=== PATIENT | female | born 1995 | race Caucasian/White ===

== ENCOUNTER 2017-01-24 17:33 | Emergency (ER) | payer OTHER ==
[~2017-01-24] VITALS: Ht 167.6 cm; Wt 102.4 kg
[~2017-01-24 17:33] MED LIST: INSULIN
[2017-01-24 18:21] VITALS: BP 131/85
== END 2017-01-24 20:46 | disposition left against medical advice (07) ==
LOC: ER 17:34
DX: R51 Headache (principal); Z53.21 Procedure and treatment not carried out due to patient leaving prior to being seen by health care provider

== ENCOUNTER 2017-09-05 19:26 | Emergency (ER) | payer SELFPAY ==
[~2017-09-05] VITALS: Ht 160 cm; Wt 105.0 kg
[2017-09-05] MEDS ORDERED: SODIUM CHLORIDE 0.9% 1,000 ML IV ONE (20:49)
[2017-09-05] MEDS ORDERED: KETOROLAC 30MG/ML VIAL IV STA (20:49)
[2017-09-05 20:56] LABS: PROTHROMBIN TIME 10.5 sec (9.4-11.6)
[2017-09-05 20:57] LABS: BASOPHILS % 0.6 % (0.0-2.0); EOSINOPHILS % 0.3 % (0.0-5.0); HEMATOCRIT. 37.5 % (36.0-48.0); HEMOGLOBIN. 12.5 g/dL (12.0-16.0); LYMPHOCYTES % 29.1 % (20.0-50.0); MEAN CORPUSCULAR HEMOGLOBIN 27.2 pg (28.0-32.0); MEAN CORPUSCULAR VOLUME 81.4 fL (81.0-99.0); MEAN PLATELET VOLUME 10.2 fl (7.4-10.4); MONOCYTES % 5.6 % (2.0-8.0); NEUTROPHILS % 64.4 % (40.0-76.0); PLATELET 226 x1000/uL (130-400); RED CELL DISTRIBUTION WIDTH 13.2 % (11.6-14.6)
[2017-09-05 21:00] LABS: CARBON DIOXIDE 28 mEq/L (21-32); CHLORIDE 100 mEq/L (98-107)
[2017-09-05 21:11] VITALS: BP 119/70
[2017-09-05] MEDS ORDERED: IOHEXOL-300 100 ML BOTTLE ONE (22:12)
[2017-09-05] MEDS ORDERED: CEFTRIAXONE 1 G PREMIX 50 ML IV ONE (23:00)
== END 2017-09-05 23:55 | disposition home or self-care (01) ==
LOC: ER 19:26
DX: K11.20 Sialoadenitis, unspecified (principal); E11.65 Type 2 diabetes mellitus with hyperglycemia; E66.9 Obesity, unspecified; R79.1 Abnormal coagulation profile
CPT/HCPCS: 36415; 70491; 80048; 85025; 85610; 96374; 96375; 99285; J0696; J1885; J7030; Q9967; Z7610

== ENCOUNTER 2020-01-11 17:08 | Emergency (ER) | payer MEDICAID ==
[~2020-01-11] VITALS: Ht 167.6 cm; Wt 210.0 kg
[2020-01-11 17:46] VITALS: BP 127/62
[2020-01-11] MEDS ORDERED: IBUPROFEN 800MG TABLET PO ONE (19:00)
[2020-01-11] MEDS ORDERED: ACETAMINOPHEN 500MG TABLET PO ONE (19:00)
== END 2020-01-11 19:14 | disposition home or self-care (01) ==
LOC: ER 17:08
DX: L02.413 Cutaneous abscess of right upper limb (principal); E11.9 Type 2 diabetes mellitus without complications
CPT/HCPCS: 99283